=== PATIENT | female | born 1985 | race African-American/Black ===

== ENCOUNTER 2019-10-03 08:40 | Inpatient (IN) | payer OTHER ==
[~2019-10-03 08:40] MED LIST: CITRIC ACID/SODIUM CITRATE 30 ML UNIT-DOSE CUP PO ONE; ELECTROLYTE-148 SOLN 1,000 ML IV SCH
[2019-10-03] MEDS: ELECTROLYTE-148 SOLN 1,000 ML IV SCH (10:15)
[2019-10-03] MEDS ORDERED: CITRIC ACID/SODIUM CITRATE 30 ML UNIT-DOSE CUP PO ONE (10:20)
--- NOTE | 2019-10-03 11:25 | HP ---
Past Medical History - Primary Care Physician PCP:: Jesenia Dee - Admission Chief Complaint: 34 yo EDC 10/23/2019 EDC 37 + weeks scheduled for rpt c/s x 3 with BTL due to uncontrolled Chronic HTN History of Present Illness: 34 yo EDC 10/23/2019 EDC 37 + weeks scheduled for rpt c/s x 3 with BTL due to uncontrolled Chronic HTN History Source: Patient Limitations to Obtaining History: No Limitations - Past Medical History Cardiovascular: Yes: HTN ...: 5 ...Para: 2 ...Spon : 2 ...LMP: 01/16/19 ... Weeks Gestation by Dates: 37 ...EDC by Dates: 10/23/19 - Past Surgical History Past Surgical History: Yes: Hx Myomectomy: No Hx Transabdominal Cerclage: No - Smoking History Smoking history: Never smoked Have you smoked in the past 12 months: No - Alcohol/Substance Use Hx Alcohol Use: No History of Substance Use: reports: None - Social History Usual Living Arrangement: Yes: With Spouse ADL: Independent History of Recent Travel: No Home Medications - Allergies Allergies/Adverse Reactions: Allergies Allergy/AdvReac Type Severity Reaction Status Date / Time No Known Allergies Allergy Verified 10/03/19 11:25 - Home Medications Home Medications: Ambulatory Orders Ferrous Sulfate [Iron] 1 tab PO DAILY 10/03/19 Labetalol HCl 300 mg PO TID 10/03/19 Vitamins (Sjr) - 1 tab PO DAILY 10/03/19 Review of Systems - Review of Systems Constitutional: reports: No Symptoms Eyes: reports: No Symptoms HENT: reports: No Symptoms Neck: reports: No Symptoms Cardiovascular: reports: No Symptoms Respiratory: reports: No Symptoms Gastrointestinal: reports: No Symptoms Genitourinary: reports: No Symptoms Breasts: reports: No Symptoms Reported Musculoskeletal: reports: No Symptoms Integumentary: reports: No Symptoms Neurological: reports: No Symptoms Endocrine: reports: No Symptoms Hematology/Lymphatic: reports: No Symptoms Physical Exam - Maternity Constitutional: Yes: Well Nourished, No Distress Eyes: Yes: WNL HENT: Yes: WNL Neck: Yes: WNL Cardiovascular: Yes: WNL Lungs: Clear to auscultation Breast(s): Yes: WNL - Abdominal Exam/OB Fundal Height: 38 Number of Fetuses: Single Presentation: Vertex Contractions: No Regularity: Irritability Intensity: Unaware Monitor Mode: External Heart Rate Location: RUQ Category: I Accelerations: Uniform Decelerations: None - Vaginal Exam/OB Vaginal Bleeding: No Presentation: Vertex/Position Station: -2 - Physical Exam Musculoskeletal: Yes: WNL Extremities: Yes: WNL Edema: Yes Edema: LUE: 1+, RUE: 1+, LLE: 1+, RLE: 1+ Integumentary: Yes: Laceration ...Motor Strength: WNL Psychiatric: Yes: WNL Hemorrhage Risk Assessment - Risk Factors Medium Risk Factors: Yes: Prior , uterine surgery,or multiple laparotomies, Large myomas Risk Score: 2 Risk Level: High Risk Problem List - Problems (1) Chronic hypertension affecting Code(s): O10.919 - UNSP PRE-EXISTING HTN COMP , UNSP TRIMESTER (2) 37 weeks gestation of Code(s): Z3A.37 - 37 WEEKS GESTATION OF (3) Previous delivery affecting Code(s): O34.219 - MATERNAL CARE FOR UNSP TYPE SCAR FROM PREVIOUS DEL (4) Multiparity Code(s): Z64.1 - PROBLEMS RELATED TO MULTIPARITY (5) AMA (advanced maternal age) multigravida 35+ Code(s): O09.529 - SUPERVISION OF ELDERLY MULTIGRAVIDA, UNSPECIFIED TRIMESTER (6) Uterine fibroids affecting in third trimester Code(s): O34.13 - MATERNAL CARE FOR BENIGN TUMOR OF CORPUS UTERI, THIRD TRI; D25.9 - LEIOMYOMA OF UTERUS, UNSPECIFIED
[2019-10-03 11:52] VITALS: BMI 35.6
[2019-10-03] MEDS ORDERED: morphine SULFATE/PF 0.5 MG/ML (2cc Syringe - QUVA) ONE (12:13)
--- NOTE | 2019-10-03 13:03 | PN ---
Progress Note (short form) - Note Progress Note: Attended schedule C/S for this 34yrs old mother with PIH Maternal NA- neg - but hand written only, COVID- 19 P Infant delivered, clear fluid, cried soon after suctioned/ dried cord 3V 9/9 HEENT - AFOF, nostril patent, Ears nl set. B/L suymmm, chest- good air entry S1-S2 nl no heart murmur FROM, No organomegaly Good tone & Activity, Nl male testis Descended RNBC Watch for Resp distress Encourage Bf/ Bonding F/U maternal labs.
--- NOTE | 2019-10-03 13:24 | PN ---
Progress Note (short form) - Note Progress Note: I assisted Dr. Oviedo at the c/section with BTL and OLGA LIDIA for the entirety of the case.
[2019-10-03] MEDS ORDERED: ceFAZolin SODIUM 1 GM VIAL ONE ×2 (13:30)
[2019-10-03] MEDS ORDERED: PHENYLEPHRINE HCL 10 MG/1 ML SINGLE DOSE VIAL ONE (13:30)
[2019-10-03] MEDS ORDERED: OXYTOCIN 10 UNITS/ML VIAL ONE ×4 (13:30)
[2019-10-03] MEDS ORDERED: ONDANSETRON 4 MG/2 ML VIAL ONE ×2 (13:41→14:47)
[2019-10-03] MEDS ORDERED: OXYTOCIN 20 UNITS in 0.9% NS 20 UNIT/1,000 ML INFUS.BAG IV ONE ×2 (13:41→16:13)
[2019-10-03] MEDS: OXYTOCIN 20 UNITS in 0.9% NS 20 UNIT/1,000 ML INFUS.BAG IV SCH (13:45)
[2019-10-03] MEDS: ONDANSETRON 4 MG/2 ML VIAL IVPUSH PRN ×2 (13:45→14:55)
--- NOTE | 2019-10-03 13:45 | OP ---
Operative Note - Note: Operative Date: 10/03/19 Pre-Operative Diagnosis: 34 yo @ 37 weeks, chronic HTN, Previous c/s x 2, Fibroid uterus,. Multiparity Operation: Rpt LTCS x 3 with BTL, OLGA LIDIA Via Pfannenstiel Incision Findings: Adhesions anterior abdominal wall - uterus Fibroid uterus Baby boy born 9/9 Cord gases and blood collected Placenta anterior ; placenta and membranes removed Post-Operative Diagnosis: Same as Pre-op Surgeon: Krystal Oviedo Program Coordinator: Maurizio Stephens Anesthesiologist/AIRPLANE RIGGER: Gene Kirkland Anesthesia: Spinal Specimens Removed: Placenta and membranes Estimated Blood Loss (mls): 800 Fluid Volume Replaced (mls): 1,000 Operative Report Dictated: Yes
[2019-10-03] MEDS ORDERED: ACETAMINOPHEN 325 MG TABLET (FP) PO PRN (13:52)
[2019-10-03] MEDS ORDERED: oxyCODONE HCL 5 MG TABLET PO PRN (13:52)
[2019-10-03] MEDS ORDERED: ACETAMINOPHEN 1000 MG/100 ML VIAL (NON FORMULARY) IVPB PRN (13:56)
[2019-10-03 14:03] LABS: CORD HCO3 25.1 mmHg (20-29); CORD PCO2 75.5 mmHg (30-78); CORD pH 7.139 (7.14-7.44)
[2019-10-03 14:06] LABS: CORD BASE EXCESS -5.6 mmol/L (0-2); CORD HCO3 21.3 mmHg (20-29); CORD PCO2 46.8 mmHg (30-78); CORD pH 7.275 (7.14-7.44)
--- NOTE | 2019-10-03 14:31 | OP ---
DATE OF OPERATION: 10/03/2019 PREOPERATIVE DIAGNOSIS: A 34-year-old 5, para 2-0-2-2 at 37 weeks, chronic hypertension, previous section x2, fibroid uterus, multiparity. SURGERY: Repeat section x3 with bilateral tubal ligation, lysis of adhesions via Pfannenstiel incision. FINDINGS: Adhesions anterior abdominal wall, uterus, fibroid uterus. Baby boy born, 9, 9. POSTOPERATIVE DIAGNOSIS: A 34-year-old 5, para 2-0-2-2 at 37 weeks, chronic hypertension, previous section x2, fibroid uterus, multiparity. SURGEON: Ania Dias MD AUTOMOTIVE LEASING SALES REPRESENTATIVE: ANESTHESIA: Gene Kirkland MD, spinal. SPECIMEN: Placenta and membrane. ESTIMATED BLOOD LOSS: 800 mL FLUIDS: Lactated Ringer's 1000 mL. URINE OUTPUT: Clear urine 200 at the end of the procedure. PROCEDURE: The patient was taken to the operating room where spinal anesthesia was administered without complication. She was prepped and draped in the usual sterile fashion in dorsal supine position with a leftward tilt. A Pfannenstiel skin incision was made with a scalpel and carried through to the underlying layers of fascia with the Bovie. The fascia was incised in the midline and the incision extended laterally with Giron scissors. The superior and inferior aspect of fascial incision was grasped with Verito clamps, elevated and the underlying rectus muscles dissected off bluntly. The anterior abdominal wall was adherent to the anterior uterine wall. Extensive lysis of adhesions performed. The bladder blade was inserted and the vesicouterine peritoneum identified, grasped with pickups and entered sharply with Metzenbaum scissors. This incision was then extended laterally and the bladder flap created digitally. The bladder blade was then reinserted. The lower uterine segment incised in transverse fashion with a scalpel. The uterine incision was then extended laterally with bandage scissors. The bladder blade was then removed and the 's head delivered atraumatically. The nose and mouth were suctioned and the cord clamped and cut. The was handed off to the waiting honey liquefier. Cord gases and blood were collected. The placenta was then removed manually. The uterus exteriorized and cleared of all clots and debris. The uterine incision repaired with 1-0 chromic in a running locked fashion. Second layer of the same suture was used to obtain hemostasis. The lysis of adhesions on the anterior uterine wall, lysis of adhesions performed, placed in the [id number] with 2-0 chromic. Surgicel was placed in both areas. The attention was turned to the tubes. Using a Brooks the fallopian tubes were suture ligated, dissected and cauterized bilaterally. The gutters were cleared of all clots and the peritoneum closed with 3-0 chromic. Fascia was reapproximated with 0 Vicryl in a running fashion and the skin was closed with larry. The patient tolerated the procedure well. Sponge, lap, needle counts were correct x2. The patient was taken to the recovery room in stable condition. ANIA DIAS MD [id number]
[2019-10-03] MEDS ORDERED: ACETAMINOPHEN INJECTION 100 ML IVPB ONE (15:20)
[2019-10-03] MEDS ORDERED: PROMETHAZINE HCL 25 MG/1 ML VIAL ONE (15:26)
[2019-10-03] MEDS ORDERED: PROMETHAZINE HCL 25 MG/1 ML VIAL IVPB ONE (15:30)
[2019-10-03] MEDS: SIMETHICONE 80 MG TAB.CHEW (FP) PO SCH ×3 (15:39→22:00)
[2019-10-03] MEDS: LABETALOL HCL 100 MG TABLET (FP) PO SCH (21:10)
[2019-10-03] MEDS: CEFAZOLIN 1 GM/D5W 1 GM/50 ML BAG IVPB SCH (21:10)
[2019-10-04] MEDS: OXYTOCIN 20 UNITS in 0.9% NS 20 UNIT/1,000 ML INFUS.BAG IV SCH (01:30)
[2019-10-04] MEDS: SIMETHICONE 80 MG TAB.CHEW (FP) PO SCH ×6 (02:00→21:21)
[2019-10-04] MEDS: CEFAZOLIN 1 GM/D5W 1 GM/50 ML BAG IVPB SCH ×2 (05:10→12:28)
[2019-10-04] MEDS: IBUPROFEN 600 MG TABLET (FP) PO PRN ×2 (06:07→13:46)
[2019-10-04] MEDS: ACETAMINOPHEN 325 MG TABLET (FP) PO PRN ×2 (06:08→13:46)
[2019-10-04 08:26] LABS: BASO % 0.3 % (0-2.0); EOS % 0.1 % (0-4.5); HEMATOCRIT 37.2 % (32.4-45.2); HEMOGLOBIN 12.5 GM/dL (10.7-15.3); LYMPH % 11.7 % (8-40); MCH 28.9 pg (25.7-33.7); MCHC 33.5 g/dl (32.0-36.0); MEAN CELL VOLUME 86.2 fl (80-96); MEAN PLT VOLUME 7.7 fl (7.5-11.1); MONO % 9.5 % (3.8-10.2); NEUT % 78.4 % (42.8-82.8); PLATELET COUNT 264 K/MM3 (134-434); RBC 4.31 M/mm3 (3.60-5.2); RDW 15.7 % (11.6-15.6); WHITE BLOOD COUNT 10.7 K/mm3 (4.0-10.0)
[2019-10-04] MEDS: MAGNESIUM HYDROX 2400MG/30ML ORAL SUSPENSION 30 ML CUP PO SCH (09:20)
[2019-10-04] MEDS: ENOXAPARIN NA (PORCINE) 40 MG/0.4 ML DISP.SYRIN SQ SCH (09:22)
[2019-10-04] MEDS: LABETALOL HCL 100 MG TABLET (FP) PO SCH ×2 (09:27→21:20)
--- NOTE | 2019-10-04 11:33 | PN ---
Post Progress Note Post Day: 1 Type of Delivery: Repeat C/S Vital Signs: Vital Signs Temperature 98.3 F 10/04/19 09:56 Pulse Rate 80 10/04/19 09:56 Respiratory Rate 18 10/04/19 11:00 Blood Pressure 133/82 10/04/19 09:56 O2 Sat by Pulse Oximetry (%) 98 10/03/19 18:00 Breast Exam: Yes: Soft Uterus: Yes: Fundus Firm Incision: Yes: Dressing dry and intact Abdomen/GI: Yes: Abdomen soft, Passing flatus, Tolerating PO Lochia: Yes: Rubra Lochia, amount: Small Extremities: Yes: Calves non-tender Activity: Ambulating (s/p repeat CS x 3) - Labs Labs: CBC WBC 10.7 K/mm3 (4.0-10.0) H 10/04/19 07:15 RBC 4.31 M/mm3 (3.60-5.2) 10/04/19 07:15 Hgb 12.5 GM/dL (10.7-15.3) 10/04/19 07:15 Hct 37.2 % (32.4-45.2) 10/04/19 07:15 MCV 86.2 fl (80-96) 10/04/19 07:15 MCH 28.9 pg (25.7-33.7) 10/04/19 07:15 MCHC 33.5 g/dl (32.0-36.0) 10/04/19 07:15 RDW 15.7 % (11.6-15.6) H 10/04/19 07:15 Plt Count 264 K/MM3 (134-434) 10/04/19 07:15 MPV 7.7 fl (7.5-11.1) 10/04/19 07:15 Absolute Neuts (auto) 8.4 K/mm3 (1.5-8.0) H 10/04/19 07:15 Neutrophils % 78.4 % (42.8-82.8) D 10/04/19 07:15 Lymphocytes % 11.7 % (8-40) D 10/04/19 07:15 Monocytes % 9.5 % (3.8-10.2) 10/04/19 07:15 Eosinophils % 0.1 % (0-4.5) D 10/04/19 07:15 Basophils % 0.3 % (0-2.0) 10/04/19 07:15 Nucleated RBC % 0 % (0-0) 10/04/19 07:15 Problem List - Problems (1) 37 weeks gestation of Code(s): Z3A.37 - 37 WEEKS GESTATION OF (2) AMA (advanced maternal age) multigravida 35+ Code(s): O09.529 - SUPERVISION OF ELDERLY MULTIGRAVIDA, UNSPECIFIED TRIMESTER (3) Chronic hypertension affecting Code(s): O10.919 - UNSP PRE-EXISTING HTN COMP , UNSP TRIMESTER Assessment/Plan s/p repeat CS CHTN on labetalol stable
[2019-10-04] MEDS ORDERED: IBUPROFEN 600 MG TABLET (FP) PO PRN (13:52)
--- NOTE | 2019-10-04 14:23 | PN ---
Progress Note (short form) - Note Progress Note: Anesthesia post Op/pain Pt seen and examined S:Alert and awake, comfortable O: Vital Signs Temperature 98.5 F 10/04/19 14:00 Pulse Rate 88 10/04/19 14:00 Respiratory Rate 18 10/04/19 14:00 Blood Pressure 144/92 10/04/19 14:00 O2 Sat by Pulse Oximetry (%) 98 10/03/19 18:00 CBC, BMP 10/04/19 07:15 A/P: Current Active Problems 37 weeks gestation of (Acute) AMA (advanced maternal age) multigravida 35+ (Acute) Chronic hypertension affecting (Acute) Multiparity (Acute) Previous delivery affecting (Acute) Uterine fibroids affecting in third trimester (Acute) s/p c section Doing well post op Continue current care Gene Kirkland MD
[2019-10-05] MEDS: SIMETHICONE 80 MG TAB.CHEW (FP) PO SCH ×6 (01:18→21:52)
[2019-10-05] MEDS: IBUPROFEN 600 MG TABLET (FP) PO PRN ×4 (01:18→19:57)
[2019-10-05] MEDS: ACETAMINOPHEN 325 MG TABLET (FP) PO PRN ×4 (01:20→19:57)
[2019-10-05] MEDS: LABETALOL HCL 100 MG TABLET (FP) PO SCH ×3 (10:04→21:52)
[2019-10-05] MEDS: MAGNESIUM HYDROX 2400MG/30ML ORAL SUSPENSION 30 ML CUP PO SCH (10:04)
[2019-10-05] MEDS: ENOXAPARIN NA (PORCINE) 40 MG/0.4 ML DISP.SYRIN SQ SCH (10:04)
--- NOTE | 2019-10-05 11:05 | PN ---
Post Progress Note - Subjective Subjective: Patient feels well; offers no complaints. Denies headache, upper abdominal pain, blurry vision, etc. Post Day: 2 Type of Delivery: Repeat C/S Vital Signs: Vital Signs Temperature 98.2 F 10/04/19 21:23 Pulse Rate 93 H 10/05/19 05:53 Respiratory Rate 20 10/05/19 05:53 Blood Pressure 145/96 10/05/19 05:53 O2 Sat by Pulse Oximetry (%) 98 10/03/19 18:00 Breast Exam: Yes: Soft Uterus: Yes: Fundus Firm Incision: Yes: Flavio intact Abdomen/GI: Yes: Abdomen soft Lochia: Yes: Rubra Lochia, amount: Small Extremities: Yes: Calves non-tender Activity: Ambulating - Labs Labs: CBC WBC 10.7 K/mm3 (4.0-10.0) H 10/04/19 07:15 RBC 4.31 M/mm3 (3.60-5.2) 10/04/19 07:15 Hgb 12.5 GM/dL (10.7-15.3) 10/04/19 07:15 Hct 37.2 % (32.4-45.2) 10/04/19 07:15 MCV 86.2 fl (80-96) 10/04/19 07:15 MCH 28.9 pg (25.7-33.7) 10/04/19 07:15 MCHC 33.5 g/dl (32.0-36.0) 10/04/19 07:15 RDW 15.7 % (11.6-15.6) H 10/04/19 07:15 Plt Count 264 K/MM3 (134-434) 10/04/19 07:15 MPV 7.7 fl (7.5-11.1) 10/04/19 07:15 Absolute Neuts (auto) 8.4 K/mm3 (1.5-8.0) H 10/04/19 07:15 Neutrophils % 78.4 % (42.8-82.8) D 10/04/19 07:15 Lymphocytes % 11.7 % (8-40) D 10/04/19 07:15 Monocytes % 9.5 % (3.8-10.2) 10/04/19 07:15 Eosinophils % 0.1 % (0-4.5) D 10/04/19 07:15 Basophils % 0.3 % (0-2.0) 10/04/19 07:15 Nucleated RBC % 0 % (0-0) 10/04/19 07:15 Assessment/Plan POD #2, hemodynamically stable CHTN, on labetalol 300mg BID, was TID during , BP currently suboptimally controlled (140-150s/90-100s) No signs/symptoms preeclampsia Increase labetalol to TID Monitor vital signs PIH labs ordered Pain management Patient educated on signs/symptoms preeclampsia Ambulation encouraged Reassess and consider discharge tomorrow
[2019-10-05 11:27] LABS: BASO % 0.9 % (0-2.0); EOS % 0.4 % (0-4.5); HEMATOCRIT 33.1 % (32.4-45.2); MCH 28.4 pg (25.7-33.7); MCHC 33.3 g/dl (32.0-36.0); MEAN CELL VOLUME 85.5 fl (80-96); MEAN PLT VOLUME 7.6 fl (7.5-11.1); NEUT % 75.7 % (42.8-82.8); PLATELET COUNT 263 K/MM3 (134-434); RBC 3.88 M/mm3 (3.60-5.2); RDW 15.4 % (11.6-15.6); WHITE BLOOD COUNT 11.2 K/mm3 (4.0-10.0)
[2019-10-05 11:48] LABS: BLOOD UREA NITROGEN 4.2 mg/dL (7-18); CALCIUM 8.6 mg/dL (8.5-10.1); CREATININE 0.4 mg/dL (0.55-1.3); POTASSIUM 3.7 mmol/L (3.5-5.1); URIC ACID 3.7 mg/dL (2.6-7.2)
[2019-10-05] MEDS ORDERED: BISACODYL 10 MG SUPP.RECT RC SCH (13:52)
[2019-10-05] MEDS: OXYTOCIN 20 UNITS in 0.9% NS 20 UNIT/1,000 ML INFUS.BAG IV SCH (15:54)
[2019-10-05] MEDS: ELECTROLYTE-148 SOLN 1,000 ML IV SCH (15:55)
[2019-10-06] MEDS: IBUPROFEN 600 MG TABLET (FP) PO PRN ×2 (02:23→09:49)
[2019-10-06] MEDS: ACETAMINOPHEN 325 MG TABLET (FP) PO PRN ×2 (02:23→09:48)
[2019-10-06] MEDS: SIMETHICONE 80 MG TAB.CHEW (FP) PO SCH ×4 (02:24→14:14)
[2019-10-06] MEDS: LABETALOL HCL 100 MG TABLET (FP) PO SCH ×2 (05:36→14:13)
[2019-10-06 08:02] LABS: BASO % 0.2 % (0-2.0); EOS % 1.8 % (0-4.5); HEMATOCRIT 32.2 % (32.4-45.2); HEMOGLOBIN 10.8 GM/dL (10.7-15.3); LYMPH % 11.9 % (8-40); MCH 28.9 pg (25.7-33.7); MCHC 33.6 g/dl (32.0-36.0); MEAN CELL VOLUME 86.2 fl (80-96); MEAN PLT VOLUME 7.6 fl (7.5-11.1); MONO % 5.5 % (3.8-10.2); NEUT % 80.6 % (42.8-82.8); PLATELET COUNT 271 K/MM3 (134-434); RBC 3.74 M/mm3 (3.60-5.2); RDW 15.5 % (11.6-15.6); WHITE BLOOD COUNT 9.4 K/mm3 (4.0-10.0)
[2019-10-06] MEDS: MAGNESIUM HYDROX 2400MG/30ML ORAL SUSPENSION 30 ML CUP PO SCH (09:48)
[2019-10-06] MEDS: ELECTROLYTE-148 SOLN 1,000 ML IV SCH (09:48)
[2019-10-06] MEDS: ENOXAPARIN NA (PORCINE) 40 MG/0.4 ML DISP.SYRIN SQ SCH (09:49)
[2019-10-06] MEDS ORDERED: NIFEdipine E.R. 30 MG TABLET PO SCH (10:45)
--- NOTE | 2019-10-06 13:35 | DS ---
Physical Exam-ROTARY SHEAR CUTTER Vital Signs: Vital Signs Temperature 99.1 F 10/06/19 09:59 Pulse Rate 86 10/06/19 09:59 Respiratory Rate 18 10/06/19 09:59 Blood Pressure 168/102 H 10/06/19 09:59 O2 Sat by Pulse Oximetry (%) 98 10/03/19 18:00 Constitutional: Yes: Well Nourished Cardiovascular: Yes: WNL Respiratory: Yes: WNL Gastrointestinal: Yes: Normal Bowel Sounds, Soft Musculoskeletal: Yes: WNL Edema: No Wound/Incision: Yes: Clean/Dry, Flavio Intact Psychiatric: Yes: Alert, Oriented Labs: CBC, BMP 10/06/19 07:20 10/05/19 10:56 Delivery - Delivery Section: Repeat Type of Anesthesia: Spinal Delivery, Single - Stages of Labor Date of Delivery: 10/03/19 Time of Delivery: 12:43 Time Placenta Delivered: 12:45 - Condition of Valet Service Attendant/Annual Giving Director Present: Yes Name: Tino Metcalf Gender: Male Weight: 2.92 kg Position: Left, OA Total Hours ROM (Hrs/Mins): 0Hrs/2Mins - 1 Minute Total Score: 9 5 Minutes Total Score: 9 - [place] Feeding Plan Initial Plan: Exclusive throughout hospitalization Remarks - Remarks Remarks: Postop day 3 repeat CS x 3 chronic hypertension currently on labetolol 300 TID procardia added 30 mg XL QD BP elevated 160/110 now 156/92 denies headaches, blurry vision pt requesting discharge - concerned about 2 children at home. Very emotional about this. Medical consult requested. Pt indicates she has PCP who follows her for HTN Discharge on labetolol and procardia 60 mg XL. Had BP cuff at home for monitoring also. Discharge Summary Problems reviewed: Yes Reason For Visit: Current Active Problems 37 weeks gestation of (Acute) AMA (advanced maternal age) multigravida 35+ (Acute) Chronic hypertension affecting (Acute) Multiparity (Acute) Previous delivery affecting (Acute) Uterine fibroids affecting in third trimester (Acute) Health Concerns: Hypertension Condition: Good - Instructions Diet, Activity, Other Instructions: low sodium diet; follow up with PCP monday and OB mon for staple removal Disposition: HOME - Home Medications Comprehensive Discharge Medication List: Ambulatory Orders Ferrous Sulfate [Iron] 1 tab PO DAILY 10/03/19 Labetalol HCl 300 mg PO TID 10/03/19 Vitamins (Sjr) - 1 tab PO DAILY 10/03/19
[2019-10-06 14:36] VITALS: BP 156/92; PULSE 85; TEMP 97.9
--- NOTE | 2019-10-06 15:06 | HP ---
CHIEF COMPLAINT: htn PCP: HISTORY OF PRESENT ILLNESS: 2 y/o female with htn, borderline dm, s/p c/s day #3 was to be discharged today but held due to issues with htn. Pt was on methyldopa and labetalol prior to delivery -- but reports not being able to get her methyldopa for the one month prior to delivery. Pt was started on procardia yest -- still high tody. Medicine consult requested for further management. No cp.s ob, n/v/f/; no headaches Pt is upset and distraught as she is not with her other two kids and has never left them home alone. Recent Travel: denies PAST MEDICAL HISTORY: as above PAST SURGICAL HISTORY: denies Social History: Smoking: denies Alcohol: ocassional but nothing in the past few months Drugs: denies Allergies No Known Allergies Allergy (Verified 10/03/19 11:25) HOME MEDICATIONS: Home Medications Medication Instructions Recorded Ferrous Sulfate [Iron] 1 tab PO DAILY 10/03/19 Labetalol HCl 300 mg PO TID 10/03/19 Vitamins (Sjr) - 1 tab PO DAILY 10/03/19 Ibuprofen 600 mg PO Q6H PRN #30 tablet 10/06/19 Labetalol HCl [Normodyne -] 300 mg PO TID #90 tablet MDD 3 10/06/19 Nifedipine [Procardia Xl] 60 mg PO ONCE #30 tab.er.24 10/06/19 REVIEW OF SYSTEMS CONSTITUTIONAL: Absent: fever, chills, diaphoresis, generalized weakness, malaise, loss of appetite, weight change HEENT: Absent: rhinorrhea, nasal congestion, throat pain, throat swelling, difficulty swallowing, mouth swelling, ear pain, eye pain, visual changes CARDIOVASCULAR: Absent: chest pain, syncope, palpitations, irregular heart rate, lightheadedness, peripheral edema RESPIRATORY: Absent: cough, shortness of breath, dyspnea with exertion, orthopnea, wheezing, stridor, hemoptysis GASTROINTESTINAL: mild incisional pain, no abdominal distension, nausea, vomiting, diarrhea, constipation, melena, hematochezia GENITOURINARY: Absent: dysuria, frequency, urgency, hesitancy, hematuria, flank pain, genital pain MUSCULOSKELETAL: Absent: myalgia, arthralgia, joint swelling, back pain, neck pain SKIN: Absent: rash, itching, pallor HEMATOLOGIC/IMMUNOLOGIC: Absent: easy bleeding, easy bruising, lymphadenopathy, frequent infections ENDOCRINE: Absent: unexplained weight gain, unexplained weight loss, heat intolerance, cold intolerance NEUROLOGIC: Absent: headache, focal weakness or paresthesias, dizziness, unsteady gait, seizure, mental status changes, bladder or bowel incontinence PSYCHIATRIC: Absent: anxiety, depression, suicidal or homicidal ideation, hallucinations. PHYSICAL EXAMINATION Vital Signs - 24 hr 10/05/19 10/05/19 10/06/19 18:00 22:00 02:00 Temperature 98.5 F 98.6 F Pulse Rate 90 90 87 Respiratory 20 18 18 Rate Blood Pressure 147/85 147/98 158/94 10/06/19 10/06/19 10/06/19 06:00 09:59 14:00 Temperature 99.1 F 97.9 F Pulse Rate 79 86 85 Respiratory 18 18 18 Rate Blood Pressure 165/99 168/102 H 156/92 GENERAL: Awake, alert, and fully oriented, in no acute distress. Visibly upset HEAD: Normal with no signs of trauma. EYES: extraocular movements intact, sclera anicteric, conjunctiva clear. No lid lag. EARS, NOSE, THROAT: Ears normal, nares patent, oropharynx clear without exudates. Moist mucous membranes. NECK: Normal range of motion, supple LUNGS: Breath sounds equal, clear to auscultation bilaterally. No wheezes, and no crackles. No accessory muscle use. HEART: Regular rate and rhythm, normal S1 and S2 without murmur, rub or gallop. ABDOMEN: Soft, nontender, not distended, normoactive bowel sounds, no guarding, no rebound, no masses. No hepatomegaly or splenomegaly. lower abdominal incision, c/d/i with larry intact MUSCULOSKELETAL: Normal range of motion at all joints. No bony deformities or tenderness. No CVA tenderness. UPPER EXTREMITIES: 2+ pulses, warm, well-perfused. No cyanosis. No clubbing. No peripheral edema. LOWER EXTREMITIES: 2+ pulses, warm, well-perfused. No calf tenderness. No peripheral edema. NEUROLOGICAL: Cranial nerves II-XII intact. Normal speech. Normal gait. PSYCHIATRIC: Cooperative. Good eye contact. Appropriate mood and affect. SKIN: Warm, dry, normal turgor, no rashes or lesions noted, normal capillary refill. Laboratory Results - last 24 hr 10/06/19 07:20 WBC 9.4 RBC 3.74 Hgb 10.8 Hct 32.2 L MCV 86.2 MCH 28.9 MCHC 33.6 RDW 15.5 Plt Count 271 MPV 7.6 Absolute Neuts (auto) 7.6 Neutrophils % 80.6 Lymphocytes % 11.9 D Monocytes % 5.5 Eosinophils % 1.8 D Basophils % 0.2 Nucleated RBC % 0 ASSESSMENT/PLAN: 34 y/o female with the abve med hx s/p c/s d#3 with htn *htn - has hx of htn on different meds now due to not getting methyldop preior to delivery (shortage per pt) can increase procardia dose to 60mg daily cont labetalol at 300mg tid needs close follow up with pmd/ob repeat bp better some htn may be attributed to her current upset state *postproctum state - stable incision appears clean monitor bp as plan above *dvt prophy - ambulate Family Medical History Family History: As Documented Family Hx Diabetes: Mother Visit type - Emergency Visit Emergency Visit: No - New Patient This patient is new to me today: Yes Date on this admission: 10/06/19 - Critical Care Critical Care patient: No
--- NOTE | 2019-10-08 16:15 | PATH ---
Surgical Pathology Report Patient Name: LEAH VERDE [facility]. Rec. #: [id number] /Age/Gender: 1985 (Age: 34) / F Account: [id number] Location: [facility] OBS/NARCOTICS AGENT Taken: 10/03/2019 Received: 10/04/2019 Reported: 10/08/2019 Physicians: Krystal Oviedo M.D. Specimen(s) Received A: PLACENTA B: PORTION OF LEFT FALLOPIAN TUBE C: PORTION OF RIGHT FALLOPIAN TUBE Clinical History , 37.6 weeks Final Diagnosis A. PLACENTA, SECTION: 372 G THIRD TRIMESTER PLACENTA WITH TRIVASCULAR UMBILICAL CORD AND UNREMARKABLE PLACENTAL MEMBRANES. B. FALLOPIAN TUBE, PORTION, LEFT, PARTIAL EXCISION: FULL LUMINAL PORTION OF UNREMARKABLE FALLOPIAN TUBE. C. FALLOPIAN TUBE, PORTION, RIGHT, PARTIAL EXCISION: FULL LUMINAL PORTION OF UNREMARKABLE FALLOPIAN TUBE. Electronically Signed Shanda Grimes M.D. Gross Description A. The specimen is received fresh labeled placenta and is a 372 gram, 15.5 x 12.5 x 2.7 cm. placenta with attached membranes and umbilical cord. The attached membranes are song, translucent with focal opacities and insert marginally. The umbilical cord measures 14 cm. in length and averages 0.9 cm. in diameter. The cord inserts eccentrically, 5 cm. to the nearest margin. No true knots or strictures are identified. Cut surface of the umbilical cord reveals 3 vessels. The surface is woodruff-blue with minimal fibrin deposition and appropriate caliber vessels. The maternal surface is red-brown with focal defects. Sectioning reveals red-brown, spongy parenchyma. No lesions are identified. Mat Cutter sections are submitted in three cassettes as follows: 1- membrane rolls and umbilical cord; 2-3- full thickness sections of placenta. B. Received in formalin labeled "portion of left fallopian tube," is a 1.5 cm in length portion of fallopian tube. No fimbria are present. The outer surface is song-roche and smooth. Sectioning reveals an unremarkable lumen. Mat Cutter sections are submitted in one cassette. C. Received in formalin labeled "portion of right tube," is a 1.8 cm in length portion of fallopian tube. No fimbria are present. The outer surface is song-roche and smooth. Sectioning reveals an unremarkable lumen. Mat Cutter sections are submitted in one cassette. 10/07/2019 [facility]/07/2019
== END 2019-10-06 16:05 | disposition home or self-care (01) | DRG 540 ==
LOC: JLDR 08:40 → J3W 16:23
PROVIDERS: ADMIT Obstetrics & Gynecology; ATTEND Obstetrics & Gynecology
PROC: 10D00Z1 Extraction of Products of Conception, Low, Open Approach (ICD-10-PCS; principal; 2019-10-03)
PROC: 0UL70ZZ Occlusion of Bilateral Fallopian Tubes, Open Approach (ICD-10-PCS; 2019-10-03)
PROC: 0DNW0ZZ Release Peritoneum, Open Approach (ICD-10-PCS; 2019-10-03)
DX: O82 Encounter for cesarean delivery without indication (principal); O10.92 Unspecified pre-existing hypertension complicating childbirth; Z37.0 Single live birth; Z30.2 Encounter for sterilization; O34.211 Maternal care for low transverse scar from previous cesarean delivery; O34.13 Maternal care for benign tumor of corpus uteri, third trimester; D25.9 Leiomyoma of uterus, unspecified; O99.89 Other specified diseases and conditions complicating pregnancy, childbirth and the puerperium; N73.6 Female pelvic peritoneal adhesions (postinfective); Z3A.37 37 weeks gestation of pregnancy
CPT/HCPCS: 36415; 36600; 80048; 82803; 84450; 84460; 84550; 85025; 87340; 88302-TC; 88307-TC; J0131